=== PATIENT | female | born 1985 | race Hispanic/Latino ===

== ENCOUNTER 2018-12-09 13:41 | Outpatient (CLI) | payer MEDICAID ==
--- NOTE | 2018-12-09 15:56 | ULT ---
ULTRASOUND PELVIC TRANSVAGINAL WITH DOPPLER: 12/09/18 HISTORY: Irregular menstrual cycles. COMPARISON: None. FINDINGS: Real time felipe scale, color Doppler and spectral analysis of the pelvis performed in transabdominal a nd transvaginal approach. The endometrium is markedly thickened and abnormal measuring 2.4 cm AP dimension. Anterior mid uterin e body fibroid measuring nearly 5 cm in size with endometrial abutment. Both ovaries are normal. IMPRESSION: 1. Markedly thickened and somewhat heterogeneous appearance of the endometrium. This may reflect endometrial hyperplasia. Direct visualization and biopsy recommended. 2. Anterior mid uterine body fibroid with endometrial abutment measuring up to 5 cm. 3. Normal appearance to the ovaries. POS: HOME
== END 2018-12-09 13:42 | disposition home or self-care (01) ==
LOC: BICULT 13:41
PROVIDERS: ATTEND Nurse Practitioner Women's Health
DX: N92.1 Excessive and frequent menstruation with irregular cycle (principal); D25.9 Leiomyoma of uterus, unspecified
CPT/HCPCS: 76856